=== PATIENT | female | born 1950 | race African-American/Black ===

== ENCOUNTER 2018-10-13 14:17 | Outpatient (CLI) | payer MEDICARE ==
--- NOTE | 2018-10-13 16:03 | BD ---
DEXA BONE DENSITY SCAN: 10/13/2018 HISTORY: Postmenopausal female, under screening for osteoporosis. COMPARISON: None. FINDINGS: LUMBAR SPINE BMD (g/cm2) T-SCORE L1 0.973 -0.2 L2 1.009 -0.2 L3 0.999 -0.8 L4 1.061 0.0 TOTAL 1.010 -0.3 FEMORAL NECK 0.773 -0.7 TOTAL PROXIMAL FEMUR: 0.981 0.3 The [id number] Fracture Risk Assessment Tool is not reported, as all T-score or at or above -1.0. IMPRESSION: Normal bone mineral density examination. POS: [facility]
== END 2018-10-13 14:18 | disposition home or self-care (01) ==
LOC: BICMAMMO 14:17
PROVIDERS: ATTEND Internal Medicine
DX: Z12.31 Encounter for screening mammogram for malignant neoplasm of breast (principal); Z13.820 Encounter for screening for osteoporosis; N64.89 Other specified disorders of breast
CPT/HCPCS: 77063; 77067; 77080

== ENCOUNTER 2018-10-24 10:19 | Outpatient (CLI) | payer MEDICARE, OTHER ==
--- NOTE | 2018-10-24 12:00 | ULT ---
LIMITED RIGHT BREAST ULTRASOUND: 10/24/2018 PROVIDED CLINICAL HISTORY: Abnormal mammogram. TECHNIQUE: Limited sonographic interrogation of the right breast was performed at the 12 o'clock position, in th e region of mammographic concern. FINDINGS: There is an ill-defined, hypoechoic, shadowing mass at the 12 o'clock position of the right breast, m easuring about 2.4 cm maximally. Limited sonographic interrogation of the right axilla demonstrates no evidence for adenopathy. IMPRESSION: BI-RADS category 4-Suspicious abnormality. Ultrasound-guided biopsy is recommended. Results and rec ommendations discussed with the patient and questions answered. POS: OFF
== END 2018-10-24 10:20 | disposition home or self-care (01) ==
LOC: BICMAMMO 10:19
PROVIDERS: ATTEND Internal Medicine
DX: R92.2 Inconclusive mammogram (principal); N64.89 Other specified disorders of breast
CPT/HCPCS: 76642; 77065; G0279

== ENCOUNTER → 2018-11-18 | Day surgery (SDC) | payer MEDICARE, OTHER | LOC: BICULT 12:23 | PROVIDERS: ATTEND Internal Medicine | DX: N63.10 Unspecified lump in the right breast, unspecified quadrant (principal); Z53.9 Procedure and treatment not carried out, unspecified reason ==

== ENCOUNTER 2018-12-21 16:49 | Emergency (ER) | payer MEDICARE ==
[2018-12-21] MEDS ORDERED: Benzonatate 100 MG CAP ONE (17:20)
--- NOTE | 2018-12-21 17:47 | RAD ---
Chest one view HISTORY: Cough and fever. FINDINGS: Cardiac silhouette is magnified by projection. Pulmonary vasculature is unremarkable. Media stinum is midline. No lobar consolidation or evidence of pneumothorax. IMPRESSION: No active cardiopulmonary abnormalities are demonstrated.
== END 2018-12-21 18:14 | disposition home or self-care (01) ==
LOC: ERS 16:49
DX: J06.9 Acute upper respiratory infection, unspecified (principal); E11.9 Type 2 diabetes mellitus without complications; I10 Essential (primary) hypertension; Z79.899 Other long term (current) drug therapy
CPT/HCPCS: 71045; 87804

== ENCOUNTER 2018-12-29 00:18 | Outpatient (CLI) | payer MEDICARE ==
[2018-12-29 15:02] LABS: Mean Corpuscular HGB CONC 32.2 g/dL (32.0-36.0); Mean Corpuscular Hemoglobin 29.3 pg (27.0-31.0); Mean Corpuscular Volume 90.8 fL (78.0-98.0); Mean Platelet Volume 8.2 fL (7.4-10.4); Platelet Count 210 thou/uL (130-400); RBC Distribution Width 14.1 % (11.5-14.5); Red Blood Cell (RBC) Count 4.45 mill/uL (4.20-5.40); White Blood Cell (WBC) Count 11.7 thou/uL (4.8-10.8)
[2018-12-29 15:21] LABS: Band 7 % (5-11); Lymphocytes 30 % (21-51); MDiff Complete? YES; Monocytes 3 % (0-10); Neutrophil 59 % (42-75); Platelet Morphology Comment Appears Adequate; RBC Morphology Normal; Reactive Lymphocytes 1 % (0-10)
[2018-12-29 15:27] LABS: Anion Gap 12 mmol/L (10-20); BUN (Urea Nitrogen) 15 mg/dL (9.8-20.1); Calc. Creatinine Clearance 0 mL/min (70-130); Calcium 9.9 mg/dL (7.8-10.44); Carbon Dioxide 24 mmol/L (23-31); Chloride 108 mmol/L (98-107); Estimated GFR-MDRD 71; Glucose 147 mg/dL (80-115); Potassium 3.8 mmol/L (3.5-5.1); Sodium 140 mmol/L (136-145)
--- NOTE | 2018-12-30 23:03 | EKG ---
Test Reason : Blood Pressure : / mmHG Vent. Rate : 078 BPM Atrial Rate : 078 BPM P-R Int : 138 ms QRS Dur : 086 ms QT Int : 374 ms P-R-T Axes : 062 008 013 degrees QTc Int : 426 ms Normal sinus rhythm Normal ECG When compared with ECG of 23-OCT-2008 07:26, No significant change was found Confirmed by JACQUI LUCERO ([id number]) on 12/30/2018 11:03:25 PM Referred By: NADIA Confirmed By:JACQUI LUCERO
== END 2018-12-29 00:19 | disposition home or self-care (01) ==
LOC: LABBT 00:18
PROVIDERS: ATTEND Specialist
DX: Z01.818 Encounter for other preprocedural examination (principal); C50.911 Malignant neoplasm of unspecified site of right female breast
CPT/HCPCS: 80048; 85025; 93005; 93010

== ENCOUNTER 2019-01-01 07:16 | Day surgery (SDC) | payer MEDICARE ==
[2018-12-29 14:14] VITALS: BMI 34.3
[2019-01-01] MEDS ORDERED: Ketorolac Tromethamine 30 MG/ML VIAL ONE (08:49)
--- NOTE | 2019-01-01 08:49 | NM ---
NM Lymphoscintigraphy HISTORY: Malignant neoplasm of unspecified site of the right female breast RADIOPHARMACEUTICAL: 413 uCi of technetium 99m filtered sulfur colloid. Right periareolar injection i n divided doses. FINDINGS: There is a focal area of increased uptake in the right axilla consistent with sentinel lymp h node. IMPRESSION: [place] lymph node in the right axilla.
[2019-01-01] MEDS ORDERED: Bupivacaine/Epinephrine 0.25% 30 ML VIAL ONE ×2 (10:00→12:00)
[2019-01-01] MEDS ORDERED: Fentanyl 100 MCG/2 ML VIAL ONE ×3 (10:17→13:36)
--- NOTE | 2019-01-01 12:56 | MMO ---
MAMMO SPECIMEN RADIOGRAPH: The specimen radiograph demonstrates a guidewire and a biopsy clip. POS: [facility]
[2019-01-01] MEDS ORDERED: PROPOFOL 200 MG/20 ML VIAL ONE (15:58)
[2019-01-01] MEDS ORDERED: PHENYLEPHRINE-NS 100 MCG/ML 10 ML SYRINGE ONE (15:58)
[2019-01-01] MEDS ORDERED: Lidocaine 1% PF 5 ML VIAL ONE (15:58)
[2019-01-01] MEDS ORDERED: Dexamethasone 20 MG/5 ML VIAL ONE (15:58)
[2019-01-01] MEDS ORDERED: Ondansetron PF 4 MG/2 ML Vial ONE (15:58)
--- NOTE | 2019-01-02 14:01 | OP ---
DATE OF PROCEDURE: 01/01/2019 PREOPERATIVE DIAGNOSIS: Right breast cancer. POSTOPERATIVE DIAGNOSIS: Right breast cancer. OPERATIONS PERFORMED: Right axillary sentinel lymph node mapping, right axillary sentinel lymph node biopsy, ultrasound-guided needle localization of the right breast cancer, needle localized right breast lumpectomy. ANESTHESIA: General endotracheal. INDICATIONS: The patient is a 68-year-old black female. She has previously diagnosed right breast cancer. She is taken to the operating room at this time for definitive treatment of this. She has elected breast conservation surgery and sentinel node biopsy. Lymphoscintigraphy was performed before going to the operating room, which showed sentinel lymph nodes within the right axilla. DESCRIPTION OF OPERATION: Informed consent was obtained. The patient was taken to the operating room, where general endotracheal anesthesia was obtained with the patient in supine position. The breast was infiltrated with Lymphazurin in the periareolar subdermal tissue. This was massaged for about 5 minutes. The breast and axilla were then prepped with ChloraPrep and draped in sterile fashion. Attention was turned to the axilla. Local anesthetic was infiltrated using 0.25% Marcaine with epinephrine. A transverse infra-axillary incision was created and dissection was carried through skin and subcutaneous tissue. The Neoprobe was utilized to identify areas of maximum radio intensity. I dissected into the axilla and was able to identify a single dominant blue-stained radioactive lymph node. Investing lymphatics were divided between clamps and 3-0 silk ties and the specimens were removed from within the axilla. Additional dissection was carried out within the axilla, identifying two additional sentinel lymph nodes. One of these had some mild blue staining and the 2nd one did not. These were removed using the similar technique. Following this, there was no longer any tissue within the axilla that was definitely blue-stained or had any significant radioactivity. The wound was closed in layers using 3-0 and 4-0 Monocryl. Additional local anesthetic was infiltrated into the wound during the course of closure. Dermabond was placed externally. Attention was then turned to the breast. Ultrasound was utilized to identify the areas of the malignancy and it was marked on the skin in a grid like fashion. A localizing needle was then passed through the cancer in a medial to lateral fashion. Local anesthetic was infiltrated using 0.25% Marcaine with epinephrine. A transverse incision was created over the malignancy to incorporate the localizing needle. Dissection was carried through skin and subcutaneous tissue. Flaps were raised superiorly and inferiorly. I then began dissection on the medial aspect of the wire and dissected down underneath the malignancy. Utilizing continued ultrasound, I dissected flaps around the cancer and removed the cancer intact within a wide lump of tissue around the localizing wire. This was passed off the field. Upon inspection of the wound, there was a tissue that appeared to be abnormal on the medial aspect. This had not appeared to be a definite cancer with the ultrasound, but I could not be certain at this time and I decided to take an additional medial margin. This tissue was grasped and excised. This was tagged for orientation with suture and passed off the field. The initial lump had been removed and was sent to the radiologist for specimen mammography. This revealed removal of the clip within the specimen. Meticulous hemostasis was obtained within the wound using electrocautery. The wound was closed in layers with 3-0 and 4-0 Monocryl. Dermabond was placed externally. There were no complications. The patient tolerated the procedure well and was taken to recovery room in stable condition. Job ID: [id number]
== END 2019-01-01 15:15 | disposition home or self-care (01) ==
LOC: SDC 07:16
PROVIDERS: ATTEND Specialist
PROC: 0HBT0ZZ Excision of Right Breast, Open Approach (ICD-10-PCS; principal; 2019-01-01)
PROC: 07B50ZX Excision of Right Axillary Lymphatic, Open Approach, Diagnostic (ICD-10-PCS; 2019-01-01)
DX: D05.11 Intraductal carcinoma in situ of right breast (principal); E11.9 Type 2 diabetes mellitus without complications; I10 Essential (primary) hypertension; Z17.0 Estrogen receptor positive status [ER+]; Z79.82 Long term (current) use of aspirin; Z79.84 Long term (current) use of oral hypoglycemic drugs; Z79.899 Other long term (current) drug therapy; Z88.2 Allergy status to sulfonamides
CPT/HCPCS: 19301; 38525; 38900; 76098; 78195; 88305; 88307; A9541; Q9968; 88341; 88342; J0131; J0690; J1100; J1885; J2001; J2405; J2704; J3010

== ENCOUNTER 2019-01-16 08:47 | Outpatient (CLI) | payer MEDICARE ==
[2019-01-16 10:11] LABS: Hemoglobin 12.8 g/dL (12.0-16.0); Mean Corpuscular Hemoglobin 29.4 pg (27.0-31.0); Mean Corpuscular Volume 91.9 fL (78.0-98.0); Mean Platelet Volume 8.3 fL (7.4-10.4); Platelet Count 246 thou/uL (130-400); RBC Distribution Width 14.8 % (11.5-14.5); Red Blood Cell (RBC) Count 4.36 mill/uL (4.20-5.40)
[2019-01-16 10:13] LABS: Anion Gap 14 mmol/L (10-20); BUN (Urea Nitrogen) 16 mg/dL (9.8-20.1); Calc. Creatinine Clearance 0 mL/min (70-130); Carbon Dioxide 23 mmol/L (23-31); Chloride 109 mmol/L (98-107); Estimated GFR-MDRD Greater than 90; Glucose 137 mg/dL (80-115); Potassium 3.8 mmol/L (3.5-5.1); Sodium 142 mmol/L (136-145)
[2019-01-16 10:48] LABS: Band 1 % (5-11); Eosinophils 3 % (0-10); Lymphocytes 18 % (21-51); MDiff Complete? YES; Monocytes 10 % (0-10); Neutrophil 68 % (42-75); RBC Morphology Normal
== END 2019-01-16 08:48 | disposition home or self-care (01) ==
LOC: LABBT 08:47
PROVIDERS: ATTEND Specialist
DX: Z01.812 Encounter for preprocedural laboratory examination (principal); D05.11 Intraductal carcinoma in situ of right breast
CPT/HCPCS: 80048; 85025

== ENCOUNTER 2019-01-20 09:23 | Inpatient (IN) | payer MEDICARE ==
[2019-01-20] MEDS ORDERED: Ketorolac Tromethamine 30 MG/ML VIAL ONE (10:12)
[2019-01-20] MEDS ORDERED: PHENYLEPHRINE-NS 100 MCG/ML 10 ML SYRINGE ONE (10:31)
[2019-01-20] MEDS ORDERED: PROPOFOL 200 MG/20 ML VIAL ONE (10:31)
[2019-01-20] MEDS ORDERED: Lidocaine 1% PF 5 ML VIAL ONE (10:31)
[2019-01-20] MEDS ORDERED: Ondansetron PF 4 MG/2 ML Vial ONE (10:31)
[2019-01-20] MEDS ORDERED: Fentanyl 100 MCG/2 ML VIAL ONE ×3 (13:19→16:24)
[2019-01-20] MEDS ORDERED: Ondansetron HCl/PF 4 MG/2 ML Vial IVP PRN (15:51)
[2019-01-20] MEDS ORDERED: Ketorolac Tromethamine 30 MG/ML VIAL IVP PRN (15:51)
[2019-01-20] MEDS ORDERED: HYDROmorphone 2 MG/ML VIAL SLOW IVP PRN (15:51)
[2019-01-20] MEDS ORDERED: Morphine Sulfate 2 MG/ML SYRINGE SLOW IVP PRN (15:51)
[2019-01-20] MEDS ORDERED: Promethazine HCl 25 MG/ML VIAL SLOW IVP PRN (15:51)
[2019-01-20] MEDS ORDERED: PACU-Morphine 4MG/ML VIAL SLOW IVP PRN (15:51)
[2019-01-20] MEDS ORDERED: Meperidine HCl/PF 25 MG/ML VIAL SLOW IVP PRN (15:51)
[2019-01-20] MEDS ORDERED: Promethazine HCl 25 MG/ML VIAL IM PRN ×2 (15:51→17:22)
[2019-01-20] MEDS ORDERED: Dextrose 5% in Water 1,000 ML IV PRN (17:22)
[2019-01-20] MEDS ORDERED: HYDROcodone/Acetaminophen 7.5/325 mg Tablet PO PRN ×2 (17:22)
[2019-01-20] MEDS ORDERED: Morphine 2 MG/ML SYRINGE SLOW IVP PRN (17:22)
[2019-01-20] MEDS ORDERED: Dextrose 50% Abboject 50 ML SYRINGE SLOW IVP PRN (17:22)
[2019-01-20] MEDS ORDERED: Ondansetron PF 4 MG/2 ML Vial IVP PRN (17:22)
[2019-01-20] MEDS ORDERED: Morphine 4 MG/ML VIAL SLOW IVP PRN (17:22)
[2019-01-20] MEDS ORDERED: hydrALAZINE 20 MG/ML VIAL SLOW IVP PRN (17:22)
[2019-01-20] MEDS ORDERED: Insulin Regular 300 UNITS/3 ML VIAL SC PRN (17:22)
[2019-01-20] MEDS: Lactated Ringer's 1,000 ML IV SCH (17:30)
[2019-01-20 17:37] VITALS: BMI 34.3
[2019-01-20] MEDS: Famotidine 20 MG TAB PO SCH (20:05)
[2019-01-20] MEDS: Docusate 100 MG CAP PO SCH (20:06)
[2019-01-20] MEDS ORDERED: Senokot 8.6 MG TAB PO SCH (21:00)
--- NOTE | 2019-01-21 02:44 | OP ---
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 PROCEDURE PERFORMED: Right simple mastectomy. ANESTHESIA: General endotracheal. INDICATIONS FOR PROCEDURE: The patient is a 68-year-old black female. She had undergone prior right breast lumpectomy and sentinel lymph node biopsy. The sentinel lymph node biopsy was negative. Lumpectomy showed diffuse ductal carcinoma in situ with all margins positive. I have recommended mastectomy for further treatment of this. DESCRIPTION OF PROCEDURE: Informed consent was obtained. The patient was taken to the operating room, where general endotracheal anesthesia obtained with the patient in supine position. Right breast was prepped with ChloraPrep and draped in sterile fashion. An elliptical incision was created across the anterior right breast including the nipple areolar complex. It was extended from the sternal margin into the axilla. Dissection was carried through skin and subcutaneous tissue. All dissection was carried out using the PlasmaBlade. Flaps were raised superiorly and inferiorly and medially down to the chest wall. Hemostasis was maintained using electrocautery. The breast was then swept off the chest wall in a medial to lateral fashion. At the lateral aspect of the pectoralis, the tissue was removed without proceeding into the axilla. It was oriented with a suture and passed off the field. Attention was then turned to tailoring the skin flaps for optimal closure and cosmesis. The patient had a substantial amount of redundant fatty tissue within the axilla. A dog-ear correction was created inferiorly, removing as much underlying fatty tissue as was reasonably possible. I also had created dog-ear correction medially, and the skin incisions had to be trimmed several times to get appropriate skin approximation. When tailoring was complete, a #19 round fluted drain was placed within the wound and brought out laterally and inferiorly and secured with 3-0 nylon suture. The wound was copiously irrigated, and all irrigant was aspirated. Hemostasis was meticulous. The skin edges were approximated using running suture of 3-0 Monocryl to approximate the deep layers and skin ginny to approximate the skin edges. A dressing was then applied using Xeroform gauze over the incision, followed by fluffed gauze and a Zackary wrap. There were no complications. The patient tolerated the procedure well and was taken to recovery room in stable condition. Job ID: [id number]
[2019-01-21] MEDS: Docusate 100 MG CAP PO SCH (08:30)
[2019-01-21] MEDS: Famotidine 20 MG TAB PO SCH (08:30)
[2019-01-21] MEDS: Lactated Ringer's 1,000 ML IV SCH (08:33)
[2019-01-21 10:04] LABS: #Basophils 0.1 thou/uL (0.0-0.2); #Eosinphils 0.3 thou/uL (0.0-0.7); #Lymphocytes 2.9 thou/uL (1.20-3.40); #Monocytes 0.9 thou/uL (0.11-0.59); #Neutrophils 4.2 thou/uL (1.40-6.50); %Basophils 0.7 % (0.0-1.0); %Eosinophils 4.1 % (0.0-10.0); %Lymphocytes 34.6 % (21.0-51.0); %Monocytes 10.7 % (0.0-10.0); Hemoglobin 10.7 g/dL (12.0-16.0); Mean Corpuscular HGB CONC 32.3 g/dL (32.0-36.0); Mean Corpuscular Hemoglobin 29.7 pg (27.0-31.0); Mean Platelet Volume 8.1 fL (7.4-10.4); Platelet Count 194 thou/uL (130-400); RBC Distribution Width 14.5 % (11.5-14.5); White Blood Cell (WBC) Count 8.3 thou/uL (4.8-10.8)
[2019-01-21 10:24] LABS: Anion Gap 12 mmol/L (10-20); BUN (Urea Nitrogen) 7 mg/dL (9.8-20.1); Calc. Creatinine Clearance 94 mL/min (70-130); Carbon Dioxide 23 mmol/L (23-31); Chloride 108 mmol/L (98-107); Estimated GFR-MDRD 90; Glucose 184 mg/dL (80-115); Potassium 3.8 mmol/L (3.5-5.1); Sodium 139 mmol/L (136-145)
[2019-01-21 13:14] VITALS: BP 150/91; TEMP 98.2
== END 2019-01-21 15:32 | disposition home or self-care (01) | DRG 583 ==
LOC: SDC 09:23 → SURG A 15:58
PROVIDERS: ADMIT Specialist; ATTEND Specialist
PROC: 0HTT0ZZ Resection of Right Breast, Open Approach (ICD-10-PCS; principal; 2019-01-20)
DX: D05.11 Intraductal carcinoma in situ of right breast (principal); Z88.2 Allergy status to sulfonamides; Z88.5 Allergy status to narcotic agent; Z90.711 Acquired absence of uterus with remaining cervical stump; Z90.49 Acquired absence of other specified parts of digestive tract; Z98.890 Other specified postprocedural states
CPT/HCPCS: 36415; 36416; 80048; 85025; J0131; J0690; J1885; J2001; J2405; J2704; J3010

== ENCOUNTER 2020-07-07 14:46 | Outpatient (CLI) | payer MEDICARE ==
--- NOTE | 2020-07-07 15:15 | MMO ---
Left Breast MAMMO Unilat Diag DDI LT+SERGIO. CLINICAL HISTORY: Patient is 69 years old and is seen for diagnostic exam. The patient has no family history of breast cancer. The patient has a history of right Mastectomy in Jan, 2019 - malignant and right Ultrasound Guided Core Biopsy in November,. VIEWS: The views performed were: right craniocaudal with tomosynthesis; right mediolateral oblique with tomosynthesis; and right mediolateral with tomosynthesis. FILMS COMPARED: The present examination has been compared to prior imaging studies performed at [facility] on 10/13/2018, 10/24/2018 and 11/21/2018. This study has been interpreted with the assistance of computer-aided detection. MAMMOGRAM FINDINGS: The breast is heterogeneously dense, which could obscure a lesion on mammography. There are stable benign appearing calcifications seen in the left breast. There are also vascular calcifications. There are no suspicious masses, suspicious calcifications, or new areas of architectural distortion. IMPRESSION: THERE IS NO MAMMOGRAPHIC EVIDENCE OF MALIGNANCY. A ROUTINE FOLLOW-UP MAMMOGRAM IN 1 YEAR IS RECOMMENDED. THE RESULTS OF THIS EXAM WERE SENT TO THE PATIENT. ACR BI-RADS Category 2 - Benign finding MAMMOGRAPHY NOTE: 1. A negative mammogram report should not delay a biopsy if a dominant of clinically suspicious mass is present. 2. Approximately 10% to 15% of breast cancers are not detected by mammography. 3. Adenosis and dense breasts may obscure an underlying neoplasm. Reported by: NOLA DANIEL MD Electonically Signed: [id number]
== END 2020-07-07 14:47 | disposition home or self-care (01) ==
LOC: BICMAMMO 14:46
PROVIDERS: ATTEND Specialist
DX: D05.11 Intraductal carcinoma in situ of right breast (principal)
CPT/HCPCS: 77065; G0279

== ENCOUNTER 2021-07-10 11:20 | Outpatient (CLI) | payer MEDICARE | END 2021-07-10 11:21 | disposition home or self-care (01) | LOC: BICRAD 11:20 | PROVIDERS: ATTEND Internal Medicine | DX: M25.551 Pain in right hip (principal) ==

== ENCOUNTER 2021-09-04 10:18 | Outpatient (CLI) | payer MEDICARE | END 2021-09-04 10:19 | disposition home or self-care (01) | LOC: BICMAMMO 10:18 | PROVIDERS: ATTEND Internal Medicine | DX: Z08 Encounter for follow-up examination after completed treatment for malignant neoplasm (principal); Z85.3 Personal history of malignant neoplasm of breast | CPT/HCPCS: 77065; G0279 ==

== ENCOUNTER 2022-01-28 21:09 | Inpatient (IN) | payer MEDICARE, SELFPAY ==
[2022-01-28 21:46] LABS: #Basophils 0.1 thou/uL (0.0-0.2); #Eosinphils 0.2 thou/uL (0.0-0.7); #Lymphocytes 4.8 thou/uL (1.20-3.40); #Monocytes 1.2 thou/uL (0.11-0.59); #Neutrophils 5.8 thou/uL (1.40-6.50); %Basophils 0.8 % (0.0-1.0); %Eosinophils 1.7 % (0.0-10.0); %Lymphocytes 39.5 % (21.0-51.0); Hemoglobin 10.8 g/dL (12.0-16.0); Mean Corpuscular HGB CONC 32.4 g/dL (32.0-36.0); Mean Corpuscular Volume 95.8 fL (78.0-98.0); Mean Platelet Volume 8.7 fL (7.4-10.4); Platelet Count 196 thou/uL (130-400); RBC Distribution Width 14.5 % (11.5-14.5); Red Blood Cell (RBC) Count 3.49 mill/uL (4.20-5.40); White Blood Cell (WBC) Count 12.2 thou/uL (4.8-10.8)
[2022-01-28 21:57] LABS: INR-International Normal Ratio 1.1; PTT 23.1 sec (22.9-36.1); Prothrombin Time 14.3 sec (12.0-14.7)
[2022-01-28 22:05] LABS: ALT (SGPT) 13 U/L (8-55); AST (SGOT) 13 U/L (5-34); Albumin 3.6 g/dL (3.4-4.8); Alkaline Phosphatase 84 U/L (40-110); Anion Gap 13 mmol/L (10-20); BUN (Urea Nitrogen) 15 mg/dL (9.8-20.1); Bilirubin, Total 0.2 mg/dL (0.2-1.2); Calc. Creatinine Clearance 0 mL/min (70-130); Calcium 8.8 mg/dL (7.8-10.44); Carbon Dioxide 20 mmol/L (23-31); Chloride 109 mmol/L (98-107); Globulin 3.4 g/dL (2.4-3.5); Glucose 233 mg/dL (83-110); Potassium 3.9 mmol/L (3.5-5.1); Sodium 138 mmol/L (136-145)
[2022-01-28] MEDS ORDERED: Pantoprazole 40 MG VIAL ONE (22:33)
[2022-01-28] MEDS ORDERED: Dextrose 5% in Water 1,000 ML IV PRN (23:22)
[2022-01-28] MEDS ORDERED: Ondansetron ODT 4 MG TAB PO PRN (23:22)
[2022-01-28] MEDS ORDERED: Ondansetron PF 4 MG/2 ML Vial IVP PRN (23:22)
[2022-01-28] MEDS ORDERED: Dextrose 50% Abboject 50 ML SYRINGE SLOW IVP PRN (23:22)
[2022-01-28] MEDS ORDERED: HumaLOG 300 UNITS/3 ML VIAL SC PRN (23:22)
[2022-01-28] MEDS ORDERED: Acetaminophen 650 MG Suppository PR PRN (23:22)
[2022-01-28] MEDS ORDERED: Acetaminophen 325 MG TAB PO PRN (23:22)
[2022-01-28] MEDS ORDERED: Morphine 2 MG/ML VIAL SLOW IVP PRN (23:29)
[2022-01-29 00:45] VITALS: BMI 33.0
[2022-01-29] MEDS: HumaLOG 300 UNITS/3 ML VIAL SC PRN ×2 (00:55→18:35)
[2022-01-29 04:30] LABS: #Basophils 0.1 thou/uL (0.0-0.2); #Eosinphils 0.1 thou/uL (0.0-0.7); #Lymphocytes 3.5 thou/uL (1.20-3.40); #Monocytes 1.3 thou/uL (0.11-0.59); #Neutrophils 6.2 thou/uL (1.40-6.50); %Basophils 0.9 % (0.0-1.0); %Eosinophils 1.1 % (0.0-10.0); %Lymphocytes 31.2 % (21.0-51.0); %Monocytes 11.4 % (0.0-10.0); %Neutrophils 55.3 % (42.0-75.0); Hemoglobin 9.6 g/dL (12.0-16.0); Mean Corpuscular HGB CONC 32.5 g/dL (32.0-36.0); Mean Corpuscular Hemoglobin 30.9 pg (27.0-31.0); Mean Platelet Volume 8.7 fL (7.4-10.4); Platelet Count 168 thou/uL (130-400); RBC Distribution Width 14.4 % (11.5-14.5); White Blood Cell (WBC) Count 11.3 thou/uL (4.8-10.8)
[2022-01-29 04:52] LABS: Anion Gap 12 mmol/L (10-20); BUN (Urea Nitrogen) 15 mg/dL (9.8-20.1); Calc. Creatinine Clearance 93 mL/min (70-130); Calcium 8.6 mg/dL (7.8-10.44); Carbon Dioxide 19 mmol/L (23-31); Chloride 111 mmol/L (98-107); Glucose 180 mg/dL (83-110); Potassium 3.6 mmol/L (3.5-5.1); Sodium 138 mmol/L (136-145)
[2022-01-29] MEDS: Sodium Chloride 0.9% 1,000 ML IV SCH ×2 (05:21→14:27)
[2022-01-29 09:24] LABS: Hemoglobin 8.7 g/dL (12.0-16.0)
[2022-01-29] MEDS ORDERED: fentaNYL Citrate/PF 100 MCG/2 ML SYRINGE ONE (12:07)
[2022-01-29 12:08] LABS: SARS-CoV-2 PCR by NAA Not Detected (NotDetected)
[2022-01-29] MEDS ORDERED: Ondansetron HCl/PF 4 MG/2 ML Vial IVP PRN (12:22)
[2022-01-29] MEDS ORDERED: Promethazine HCl 25 MG/ML VIAL IVPB PRN (12:22)
[2022-01-29] MEDS ORDERED: Promethazine HCl 25 MG/ML VIAL IM PRN (12:22)
[2022-01-29] MEDS ORDERED: PACU-Morphine 4MG/ML VIAL SLOW IVP PRN (12:22)
[2022-01-29] MEDS ORDERED: Pantoprazole 40 MG VIAL IVP SCH (12:30)
[2022-01-29] MEDS ORDERED: PROPOFOL 200 MG/20 ML VIAL ONE (12:45)
[2022-01-29] MEDS ORDERED: Lidocaine 1% PF 5 ML VIAL ONE (12:45)
[2022-01-29] MEDS ORDERED: GoLYTELY 4,000 ml Bottle PO SCH (14:52)
[2022-01-29] MEDS: Pantoprazole 40 MG VIAL IVP SCH (20:50)
[2022-01-29 21:15] LABS: Hemoglobin 8.6 g/dL (12.0-16.0)
[2022-01-30 03:59] LABS: #Basophils 0.1 thou/uL (0.0-0.2); #Eosinphils 0.2 thou/uL (0.0-0.7); #Lymphocytes 3.5 thou/uL (1.20-3.40); %Basophils 1.4 % (0.0-1.0); %Eosinophils 2.4 % (0.0-10.0); %Lymphocytes 35.4 % (21.0-51.0); %Monocytes 10.4 % (0.0-10.0); %Neutrophils 50.4 % (42.0-75.0); Hemoglobin 7.6 g/dL (12.0-16.0); Mean Corpuscular HGB CONC 33.1 g/dL (32.0-36.0); Mean Corpuscular Hemoglobin 31.6 pg (27.0-31.0); Mean Corpuscular Volume 95.3 fL (78.0-98.0); Mean Platelet Volume 8.5 fL (7.4-10.4); Platelet Count 152 thou/uL (130-400); RBC Distribution Width 14.5 % (11.5-14.5); Red Blood Cell (RBC) Count 2.41 mill/uL (4.20-5.40)
[2022-01-30 04:20] LABS: Anion Gap 9 mmol/L (10-20); BUN (Urea Nitrogen) 9 mg/dL (9.8-20.1); Calc. Creatinine Clearance 106 mL/min (70-130); Calcium 8.1 mg/dL (7.8-10.44); Carbon Dioxide 25 mmol/L (23-31); Chloride 110 mmol/L (98-107); Glucose 177 mg/dL (83-110); Potassium 3.4 mmol/L (3.5-5.1); Sodium 141 mmol/L (136-145)
[2022-01-30] MEDS ORDERED: Potassium Chloride 20 MEQ TAB PO SCH (08:30)
[2022-01-30] MEDS ORDERED: Lidocaine 1% PF 5 ML VIAL ONE (09:55)
[2022-01-30] MEDS ORDERED: PROPOFOL 200 MG/20 ML VIAL ONE (09:55)
[2022-01-30] MEDS ORDERED: Iron, Sodium Ferric Gluconate 250 MG in Sodium Chloride 0.9% 250 ML 250 ML IVPB SCH (10:45)
[2022-01-30] MEDS: Pantoprazole 40 MG VIAL IVP SCH (11:43)
[2022-01-30] MEDS: HumaLOG 300 UNITS/3 ML VIAL SC PRN (17:43)
[2022-01-31 04:53] LABS: Anion Gap 12 mmol/L (10-20); BUN (Urea Nitrogen) 9 mg/dL (9.8-20.1); Calc. Creatinine Clearance 90 mL/min (70-130); Carbon Dioxide 21 mmol/L (23-31); Chloride 108 mmol/L (98-107); Glucose 190 mg/dL (83-110); Potassium 3.7 mmol/L (3.5-5.1); Sodium 137 mmol/L (136-145)
[2022-01-31 05:58] LABS: Band 2 % (5-11); Eosinophils 4 % (0-10); Lymphocytes 35 % (21-51); MDiff Complete? YES; Mean Corpuscular HGB CONC 31.8 g/dL (32.0-36.0); Mean Corpuscular Hemoglobin 30.5 pg (27.0-31.0); Mean Corpuscular Volume 95.7 fL (78.0-98.0); Mean Platelet Volume 8.8 fL (7.4-10.4); Monocytes 4 % (0-10); Neutrophil 55 % (42-75); Platelet Count 144 thou/uL (130-400); RBC Distribution Width 14.6 % (11.5-14.5); Red Blood Cell (RBC) Count 2.63 mill/uL (4.20-5.40); White Blood Cell (WBC) Count 13.9 thou/uL (4.8-10.8)
[2022-01-31] MEDS: HumaLOG 300 UNITS/3 ML VIAL SC PRN ×2 (06:18→14:15)
[2022-01-31 16:27] VITALS: BP 134/60; TEMP 98.2
== END 2022-01-31 18:03 | disposition home or self-care (01) | DRG 378 ==
LOC: ERS 21:09 → 2NO 23:25
PROVIDERS: ADMIT Emergency Medicine; ATTEND Emergency Medicine
PROC: 0DB78ZX Excision of Stomach, Pylorus, Via Natural or Artificial Opening Endoscopic, Diagnostic (ICD-10-PCS; principal; 2022-01-29)
PROC: 0DJD8ZZ Inspection of Lower Intestinal Tract, Via Natural or Artificial Opening Endoscopic (ICD-10-PCS; 2022-01-30)
DX: K57.31 Diverticulosis of large intestine without perforation or abscess with bleeding (principal); D62 Acute posthemorrhagic anemia; Z20.822 Contact with and (suspected) exposure to COVID-19; K29.70 Gastritis, unspecified, without bleeding; E11.9 Type 2 diabetes mellitus without complications; I10 Essential (primary) hypertension; M16.12 Unilateral primary osteoarthritis, left hip; R51.9 Headache, unspecified; I44.1 Atrioventricular block, second degree; Z28.21 Immunization not carried out because of patient refusal; Z88.5 Allergy status to narcotic agent; Z88.2 Allergy status to sulfonamides; Z91.018 Allergy to other foods; Z79.899 Other long term (current) drug therapy; Z79.84 Long term (current) use of oral hypoglycemic drugs; Z79.82 Long term (current) use of aspirin; Z85.3 Personal history of malignant neoplasm of breast; Z90.12 Acquired absence of left breast and nipple; Z90.710 Acquired absence of both cervix and uterus; Z79.1 Long term (current) use of non-steroidal anti-inflammatories (NSAID)
CPT/HCPCS: 36415; 36416; 80048; 80053; 85025; 85610; 85730; 86850; 86900; 86901; 88305; 93306; 96374; C9113; J1815; J2704; J2916; J7050; U0003; U0005

== ENCOUNTER 2023-06-11 08:10 | Emergency (ER) | payer MEDICARE, OTHER ==
[2023-06-11] MEDS ORDERED: Acetaminophen 500 MG TAB ONE (09:51)
== END 2023-06-11 11:24 | disposition home or self-care (01) ==
LOC: ERS 08:10
DX: M25.551 Pain in right hip (principal); I10 Essential (primary) hypertension; E11.9 Type 2 diabetes mellitus without complications; E78.5 Hyperlipidemia, unspecified; Z79.899 Other long term (current) drug therapy

== ENCOUNTER 2024-07-30 12:09 | Outpatient (CLI) | payer MEDICARE | END 2024-07-30 12:10 | disposition home or self-care (01) | LOC: BICMAMMO 12:09 | PROVIDERS: ATTEND Family Medicine | DX: Z08 Encounter for follow-up examination after completed treatment for malignant neoplasm (principal); Z85.3 Personal history of malignant neoplasm of breast | CPT/HCPCS: 77065; G0279 ==

== ENCOUNTER 2024-10-10 17:15 | Emergency (ER) | payer MEDICARE | END 2024-10-10 18:29 | disposition home or self-care (01) | LOC: ERS 17:15 | DX: T78.3XXA Angioneurotic edema, initial encounter (principal); E11.9 Type 2 diabetes mellitus without complications; I10 Essential (primary) hypertension; E78.5 Hyperlipidemia, unspecified; Z79.899 Other long term (current) drug therapy; Z85.3 Personal history of malignant neoplasm of breast; Z79.82 Long term (current) use of aspirin; Z79.84 Long term (current) use of oral hypoglycemic drugs | CPT/HCPCS: 99283 ==

== ENCOUNTER 2025-05-21 12:09 | Emergency (ER) | payer MEDICARE ==
[2025-05-21] MEDS ORDERED: Acetaminophen 500 MG TAB ONE (13:22)
[2025-05-21] MEDS ORDERED: Bacitracin 1 PK ONE (13:22)
== END 2025-05-21 15:48 | disposition home or self-care (01) ==
LOC: ERS 12:09
DX: M25.512 Pain in left shoulder (principal); I10 Essential (primary) hypertension; E11.9 Type 2 diabetes mellitus without complications; W01.0XXA Fall on same level from slipping, tripping and stumbling without subsequent striking against object, initial encounter
CPT/HCPCS: 99283